=== PATIENT | male | born 1950 ===

== ENCOUNTER 2024-03-06 10:18 | Observation (INO) ==
[~2024-03-06 10:18] MED LIST: Metoclopramide 5 MG/ML VIAL (10 mg) IV PRN; NS 0.45% 1000 ml BAG 1,000 ML IV SCH; Naloxone 0.4 mg VIAL 0.4 mg/ml 1 ml VIAL IV PRN; Ondansetron 4 mg VIAL 2 MG/ML 2 ml VIAL IV PRN; fentaNYL 100 mcg/2 ml 50 MCG/ML VIAL IV PRN
[2024-03-06] MEDS ORDERED: Glycopyrrolate IV 0.2 MG/ML 1 ML VIAL ONE (10:22)
[2024-03-06] MEDS ORDERED: Propofol 10 MG/ML 20 ML BTL ONE (10:22)
[2024-03-06] MEDS ORDERED: Ondansetron 4 mg VIAL 2 MG/ML 2 ml VIAL ONE (10:22)
[2024-03-06] MEDS ORDERED: Dexamethasone IV 4 MG/ML VIAL 1 ml VIAL ONE (10:22)
[2024-03-06] MEDS ORDERED: Lidocaine 2% PF 5 ML VIAL ONE (10:23)
[2024-03-06] MEDS ORDERED: Rocuronium 50 mg VIAL 10 mg/ml 5 ml VIAL (50 mg) ONE (10:25)
[2024-03-06] MEDS ORDERED: Chlorhexidine MOUTHWASH 0.12% 15 ML UDC ONE (10:47)
[2024-03-06] MEDS ORDERED: Famotidine IV 10 MG/ML 2 ml VIAL (20 mg) ONE (10:52)
[2024-03-06] MEDS ORDERED: ceFAZolin 2 GM PREMIX 2 GM/50 ML BAG ONE (10:52)
[2024-03-06] MEDS ORDERED: ceFAZolin 1 GM in Dextrose 1 GM/50 ML BAG ONE (10:52)
[2024-03-06 11:19] LABS: Rapid COVID-19 Molecular Undetected (Undetected)
[2024-03-06] MEDS: Famotidine IV 10 MG/ML 2 ml VIAL (20 mg) IV SLOW PU ONE (11:28)
[2024-03-06] MEDS ORDERED: ceFAZolin VIAL VIAL ONE (11:48)
[2024-03-06] MEDS ORDERED: Lidocaine 1% w EPI 1:100,000 MDV 20 ML VIAL ONE (11:48)
[2024-03-06] MEDS ORDERED: fentaNYL 250 mcg/5 ml 50 MCG/ML 5 ml VIAL (250 MCG) ONE (11:59)
[2024-03-06] MEDS ORDERED: Senna TAB 8.6 mg TAB PO PRN (14:03)
[2024-03-06] MEDS ORDERED: Ondansetron 4 mg VIAL 2 MG/ML 2 ml VIAL IV PRN (14:03)
[2024-03-06] MEDS ORDERED: Morphine 2 MG/ML SYRINGE IV PRN (14:03)
[2024-03-06] MEDS ORDERED: Calcium Carb (TUMS) 500 mg CHEW TAB PO PRN (14:03)
[2024-03-06] MEDS ORDERED: HYDROcodone/ACETAMIN 5/325 mg TAB PO PRN ×2 (14:03)
[2024-03-06] MEDS ORDERED: Phenol 1.4% Throat Spray BTL MT PRN (14:03)
[2024-03-06] MEDS ORDERED: Dextran 70/Hypromellose Tears Eye Drops 15 ml BTL (for Artificials Tears) BOTH EYES PRN (14:03)
[2024-03-06] MEDS: Lactated Ringers 1000 ml BAG 1,000 ML IV SCH ×2 (17:48→17:50)
[2024-03-06] MEDS: Buffered Lidocaine 1% SYRIN 1 ml INTRADERM ONE (17:49)
[2024-03-06] MEDS: Scopolamine 1 mg/72hr PATCH TRANSDERM ONE (17:50)
[2024-03-06] MEDS: Acetaminophen IV 1 GM/100ML 1,000 MG/100 ML BAG IV ONE (22:06)
[2024-03-07] MEDS: Aspirin EC 81 mg TAB.EC (enteric coated) PO SCH (11:11)
[2024-03-07] MEDS: Benzocaine/Menthol LOZ MT PRN (11:11)
[2024-03-07] MEDS: TADALAFIL 5 MG PO SCH (11:12)
[2024-03-07 14:14] VITALS: BP 138/73
== END 2024-03-07 16:30 | disposition home or self-care (01) ==
LOC: OR 10:18 → SSU 10:18
PROVIDERS: ADMIT Neurological Surgery; ATTEND Neurological Surgery